=== PATIENT | male | born 1985 | race Caucasian/White ===

== ENCOUNTER 2017-08-13 09:44 | Emergency (ER) | payer BC, OTHER ==
[2017-08-13] MEDS ORDERED: methylPREDNISolone Sodium Succinate 125 MG/2 ML SDV IM ONE (10:10)
[2017-08-13] MEDS ORDERED: hydrOXYzine Pamoate 25 MG Cap PO ONE (10:10)
--- NOTE | 2017-08-13 10:16 | EDM.PDOC ---
ED HPI GENERAL MEDICAL PROBLEM - General Chief Complaint: Allergic Reaction Stated Complaint: SOB,ITCHY Time Seen by Provider: 08/13/17 10:00 - History of Present Illness INITIAL COMMENTS - FREE TEXT/NARRATIVE: HISTORY AND PHYSICAL: History of present illness: The patient is a 32-year-old male presents with complaints of a rash on the nape of his neck upper extremities and lower legs as well as face that started 2 -3 days ago. The patient said he saw a provider at a walk-in clinic earlier this week for an area on his left wrist that was scaly and dry and was placed on triamcinolone cream. The patient has been taking Benadryl once a day as well to help with itching. The patient works in the oil [email or web address] and says he is around a lot of chemicals and he is not sure if that caused the initial rash on his wrist. The new rash that he is here for today started 2-3 days ago and is very itchy but he has no facial swelling oral swelling or shortness of breath. Review of systems: As per history of present illness and below otherwise all systems reviewed and negative. Past medical history: As per history of present illness and as reviewed below otherwise noncontributory. Surgical history: As per history of present illness and as reviewed below otherwise noncontributory. Social history: No reported history of drug or alcohol abuse. Family history: As per history of present illness and as reviewed below otherwise noncontributory. Physical exam: Gen.: Well-developed well-nourished male who is nontoxic and speaking clearly in the ED. Vital signs have been noted by me. HEENT: Atraumatic, normocephalic, there is no gross facial swelling appreciated negative for conjunctival pallor or scleral icterus, mucous membranes moist, throat clear, neck supple, nontender, trachea midline. Lungs: Clear to auscultation, breath sounds equal bilaterally, chest nontender. No wheezing or stridor Heart: S1S2, regular rate and rhythm no overt murmurs Abdomen: Soft, nondistended, nontender. NABS Pelvis: Deferred Genitourinary: Deferred. Rectal: Deferred. Extremities: Atraumatic, negative for cords or calf pain. Neurovascular unremarkable. Neuro: Awake, alert, oriented. Cranial nerves II through XII unremarkable. Cerebellum unremarkable. Motor and sensory unremarkable throughout. Exam nonfocal. Skin: At his left wrist dorsally there is a large patch of erythema dry and scaly rash which is well demarcated and has some scant skin breaks. There is no drainage from this area no tenderness and no swelling. The other rash for which she is here being seen for today is located around the anterior and posterior aspect of his neck scattered areas on his upper extremities, his for head and cheeks, and his lower legs. It is maculopapular and raised and there are no vesicles. There is no rash seen on his abdomen or his back. Diagnostics: [] Therapeutics: Vistaril Solu-Medrol Impression: Nonspecific dermatitis Definitive disposition and diagnosis as appropriate pending reevaluation and review of above. - Related Data Allergies Allergy/AdvReac Type Severity Reaction Status Date / Time No Known Allergies Allergy Verified 08/13/17 10:03 Home Meds: Home Meds . [No Known Home Meds] 08/13/17 [History] Past Medical History - Past Health History Medical/Surgical History: Denies Medical/Surgical History Social & Family History - Recreational Drug Use Recreational Drug Use: No ED ROS ALLERGIC REACTION - Review of Systems Review Of Systems: ROS reveals no pertinent complaints other than HPI. ED EXAM GENERAL NO PERIP PULSE - Physical Exam Exam: See Below (See dictation) Course - Vital Signs Last Recorded V/S: Last Vital Signs Temp 36.7 C 08/13/17 10:04 Pulse 79 08/13/17 10:04 Resp 18 08/13/17 10:04 BP 164/86 H 08/13/17 10:04 Pulse Ox 98 08/13/17 10:04 - Orders/Labs/Meds Orders: Active Orders 24 hr Category Date Time Status hydrOXYzine Pamoate [Vistaril] Med 08/13/17 10:10 Once 25 mg PO ONETIME ONE methylPREDNISolone Sod Succ [Solu-MEDROL] Med 08/13/17 10:10 Once 125 mg IM ONETIME ONE Medication Orders Hydroxyzine Pamoate (Vistaril) 25 mg PO ONETIME ONE Stop: 08/13/17 10:11 Methylprednisolone Sodium Succinate (Solu-Medrol) 125 mg IM ONETIME ONE Stop: 08/13/17 10:11 Meds: Medications Generic Name Dose Route Start Last Admin Trade Name Freq PRN Reason Stop Dose Admin Hydroxyzine Pamoate 25 mg 08/13/17 10:10 Vistaril PO 08/13/17 10:11 ONETIME ONE Methylprednisolone Sodium Succinate 125 mg 08/13/17 10:10 Solu-Medrol IM 08/13/17 10:11 ONETIME ONE Departure - Departure Time of Disposition: 10:16 Disposition: Home, Self-Care 01 Condition: Good Clinical Impression: Contact dermatitis Qualifiers: Contact dermatitis type: unspecified Contact dermatitis trigger: unspecified trigger Qualified Code(s): L25.9 - Unspecified contact dermatitis, unspecified cause - Discharge Information Referrals: PCP,None [Primary Care Provider] - Additional Instructions: The following information is given to patients seen in the emergency department who are being discharged to home. This information is to outline your options for follow-up care. We provide all patients seen in our emergency department with a follow-up referral. The need for follow-up, as well as the timing and circumstances, are variable depending upon the specifics of your emergency department visit. If you don't have a primary care physician on staff, we will provide you with a referral. We always advise you to contact your personal physician following an emergency department visit to inform them of the circumstance of the visit and for follow-up with them and/or the need for any referrals to a consulting specialist. The emergency department will also refer you to a specialist when appropriate. This referral assures that you have the opportunity for followup care with a specialist. All of these measure are taken in an effort to provide you with optimal care, which includes your followup. Under all circumstances we always encourage you to contact your private physician who remains a resource for coordinating your care. When calling for followup care, please make the office aware that this follow-up is from your recent emergency room visit. If for any reason you are refused follow-up, please contact the [facility] emergency department at and ask to speak to the emergency department charge nurse. [facility] Primary care- Internal Medicine and Family [address] [address] Please use hypoallergenic soaps and lotions to your body where there is no rash such as Cetaphil [id number]. Please use [id number] Benadryl or the prescribed Vistaril for itching as we discussed the next 2 days and then as needed afterwards. Please use [id number] hydrocortisone cream in small amounts on the areas of the new rash and continue your treatment on the prior rash. Please take prednisone as directed and start the prescription tomorrow. Please call and follow-up in our clinic in the next few days for further care and reevaluation and/or connect with a band tier for further care. Return to ER as needed and as discussed - My Orders Last 24 Hours: My Active Orders 08/13/17 10:10 hydrOXYzine Pamoate [Vistaril] 25 mg PO ONETIME ONE methylPREDNISolone Sod Succ [Solu-MEDROL] 125 mg IM ONETIME ONE - Assessment/Plan Last 24 Hours: My Active Orders 08/13/17 10:10 hydrOXYzine Pamoate [Vistaril] 25 mg PO ONETIME ONE methylPREDNISolone Sod Succ [Solu-MEDROL] 125 mg IM ONETIME ONE
== END 2017-08-13 10:47 | disposition home or self-care (01) ==
LOC: MW.ED 09:44
DX: L25.9 Unspecified contact dermatitis, unspecified cause (principal)
CPT/HCPCS: 96372; 99282; A9270; J2930; 99283

== ENCOUNTER 2018-03-11 09:45 | Observation (INO) | payer BC ==
[2018-03-11] MEDS ORDERED: methylPREDNISolone Sodium Succinate 125 MG/2 ML SDV IVPUSH ONE (09:50)
[2018-03-11] MEDS ORDERED: diphenhydrAMINE 50 MG/ML SDV IVPUSH ONE (09:50)
--- NOTE | 2018-03-11 09:51 | EDM.PDOC ---
ED HPI GENERAL MEDICAL PROBLEM - General Stated Complaint: SPOKE TO NURSE Time Seen by Provider: 03/11/18 09:49 - History of Present Illness INITIAL COMMENTS - FREE TEXT/NARRATIVE: HISTORY AND PHYSICAL: History of present illness: Patient is a 33-year-old white male presents with a concern of a rash he had a similar episode in the past for which he was told didn't likely represented an contact dermatitis he comes in now with an area that started on his buttock and has now spread to his hands forearms and face there is a pleuritic component he denies fever chills nausea or vomiting Review of systems: As per history of present illness and below otherwise all systems reviewed and negative. Past medical history: As per history of present illness and as reviewed below otherwise noncontributory. Surgical history: As per history of present illness and as reviewed below otherwise noncontributory. Social history: No reported history of drug or alcohol abuse. Family history: As per history of present illness and as reviewed below otherwise noncontributory. Physical exam: HEENT: Atraumatic, normocephalic, pupils reactive, negative for conjunctival pallor or scleral icterus, mucous membranes moist, throat clear, neck supple, nontender, trachea midline. Lungs: Clear to auscultation, breath sounds equal bilaterally, chest nontender. Heart: S1S2, regular, negative for clicks, rubs, or JVD. Abdomen: Soft, nondistended, nontender. Negative for masses or hepatosplenomegaly. Negative for costovertebral tenderness. Pelvis: Stable nontender. Genitourinary: Deferred. Rectal: Deferred. Extremities: Atraumatic, negative for cords or calf pain. Neurovascular unremarkable. Neuro: Awake, alert, oriented. Cranial nerves II through XII unremarkable. Cerebellum unremarkable. Motor and sensory unremarkable throughout. Exam nonfocal. Skin: Patient has a maculopapular rash involving his face neck hands forearms and has an extensive area with coalescence of his bilateral buttock with erythema warmth and tenderness Diagnostics: CBC CMP blood culture 2 lactic acid Therapeutics: Saline 1 L bolus vancomycin 1 g IV Solu-Medrol 125 mg IV Benadryl 50 mg IV Impression: #1 allergic dermatitis #2 rule out cellulitis Definitive disposition and diagnosis as appropriate pending reevaluation and review of above. - Related Data Allergies Allergy/AdvReac Type Severity Reaction Status Date / Time No Known Allergies Allergy Verified 03/11/18 09:51 Home Meds: Home Meds . [No Known Home Meds] 08/13/17 [History] Past Medical History - Past Health History Medical/Surgical History: Denies Medical/Surgical History Social & Family History - Caffeine Use Caffeine Use: Reports: Coffee, Energy Drinks ED ROS GENERAL - Review of Systems Review Of Systems: ROS reveals no pertinent complaints other than HPI. ED EXAM, GENERAL - Physical Exam Exam: See Below (See dictation) Course - Vital Signs Last Recorded V/S: Last Vital Signs Temp 36.2 C 03/11/18 09:51 Pulse 87 03/11/18 09:51 Resp 16 03/11/18 09:51 BP 141/81 H 03/11/18 09:51 Pulse Ox 99 03/11/18 09:51 - Orders/Labs/Meds Orders: Active Orders 24 hr Category Date Time Status COMPREHENSIVE METABOLIC PN,CMP [CHEM] Stat Lab 03/11/18 09:57 Received CULTURE BLOOD [BC] Stat Lab 03/11/18 09:57 Received CULTURE BLOOD [BC] Stat Lab 03/11/18 10:13 Results Vancomycin [Vancocin] 1 gm Med 03/11/18 09:50 Active Sodium Chloride 0.9% [Normal Saline] 250 ml IV ONETIME Blood Culture x2 Reflex Set [OM.PC] Stat Oth 03/11/18 09:50 Ordered Medication Orders Vancomycin HCl 1 gm/ Sodium (Chloride) 250 mls @ 166 mls/hr IV ONETIME ONE Stop: 03/11/18 11:20 Last Admin: 03/11/18 10:06 Dose: 166 mls/hr Labs: Laboratory Tests 03/11/18 03/11/18 Range/Units 09:57 09:57 WBC 8.40 (4.0-11.0) K/uL RBC 4.73 (4.50-5.90) M/uL Hgb 15.2 (13.0-17.0) g/dL Hct 42.7 (38.0-50.0) % MCV 90.3 (80.0-98.0) fL MCH 32.1 H (27.0-32.0) pg MCHC 35.6 (31.0-37.0) g/dL RDW Std Deviation 42.7 (28.0-62.0) fl RDW Coeff of Damaris 13 (11.0-15.0) % Plt Count 240 (150-400) K/uL MPV 9.60 (7.40-12.00) fL Neut % (Auto) 55.4 (48.0-80.0) % Lymph % (Auto) 30.4 (16.0-40.0) % [place] % (Auto) 8.2 (0.0-15.0) % Eos % (Auto) 5.5 (0.0-7.0) % Baso % (Auto) 0.5 (0.0-1.5) % Neut # (Auto) 4.7 (1.4-5.7) K/uL Lymph # (Auto) 2.6 H (0.6-2.4) K/uL [place] # (Auto) 0.7 (0.0-0.8) K/uL Eos # (Auto) 0.5 (0.0-0.7) K/uL Baso # (Auto) 0.0 (0.0-0.1) K/uL Nucleated RBC % 0.0 /100WBC Nucleated RBCs # 0 K/uL Lactate 0.9 (0.20-2.00) mmol/L Meds: Medications Generic Name Dose Route Start Last Admin Trade Name Freq PRN Reason Stop Dose Admin Vancomycin HCl 1 gm/ Sodium 250 mls @ 166 mls/hr 03/11/18 09:50 03/11/18 10: 06 Chloride IV 03/11/18 11:20 166 mls/hr ONETIME ONE Administration Discontinued Medications Generic Name Dose Route Start Last Admin Trade Name Freq PRN Reason Stop Dose Admin Diphenhydramine HCl 50 mg 03/11/18 09:50 03/11/18 10:06 Benadryl IVPUSH 03/11/18 09:51 50 mg ONETIME ONE Administration Diphenhydramine HCl Confirm 03/11/18 10:03 03/11/18 10:20 Benadryl Administered 03/11/18 10:04 Not Given Dose 50 mg .ROUTE .STK-MED ONE Methylprednisolone Sodium Succinate 125 mg 03/11/18 09:50 03/11/18 10:06 Solu-Medrol IVPUSH 03/11/18 09:51 125 mg ONETIME ONE Administration Methylprednisolone Sodium Succinate Confirm 03/11/18 10:04 03/11/18 10:20 Solu-Medrol Administered 03/11/18 10:05 Not Given Dose 125 mg .ROUTE .STK-MED ONE Departure - Departure Time of Disposition: 10:30 Disposition: Refer to Observation Condition: Good Clinical Impression: Cellulitis Contact dermatitis Qualifiers: Contact dermatitis type: unspecified Contact dermatitis trigger: unspecified trigger Qualified Code(s): L25.9 - Unspecified contact dermatitis, unspecified cause - Discharge Information - My Orders Last 24 Hours: My Active Orders 03/11/18 09:50 Vancomycin [Vancocin] 1 gm Sodium Chloride 0.9% [Normal Saline] 250 ml IV ONETIME Blood Culture x2 Reflex Set [OM.PC] Stat 03/11/18 09:57 COMPREHENSIVE METABOLIC PN,CMP [CHEM] Stat CULTURE BLOOD [BC] Stat 03/11/18 10:13 CULTURE BLOOD [BC] Stat - Assessment/Plan Last 24 Hours: My Active Orders 03/11/18 09:50 Vancomycin [Vancocin] 1 gm Sodium Chloride 0.9% [Normal Saline] 250 ml IV ONETIME Blood Culture x2 Reflex Set [OM.PC] Stat 03/11/18 09:57 COMPREHENSIVE METABOLIC PN,CMP [CHEM] Stat CULTURE BLOOD [BC] Stat 03/11/18 10:13 CULTURE BLOOD [BC] Stat
[2018-03-11] MEDS ORDERED: diphenhydrAMINE 50 MG/ML SDV ONE (10:03)
[2018-03-11] MEDS ORDERED: methylPREDNISolone Sodium Succinate 125 MG/2 ML SDV ONE (10:04)
[2018-03-11 10:32] LABS: CHLORIDE,CL 104 mmol/L (98-107); SODIUM,NA 137 mmol/L (136-148)
--- NOTE | 2018-03-11 16:41 | PCM.HP ---
H&P History of Present Illness - General Date of Service: 03/11/18 Admit Problem/Dx: Admission Diagnosis/Problem Admission Diagnosis/Problem Dermatitis - History of Present Illness Initial Comments - Free Text/Narative: 33 yo male who presents with rash on his buttocks and feet. - Related Data Allergies/Adverse Reactions: Allergies Allergy/AdvReac Type Severity Reaction Status Date / Time No Known Allergies Allergy Verified 03/11/18 09:51 Home Medications: Home Meds Sulfamethoxazole/Trimethoprim [Bactrim Ds Tablet] 1 each PO BID #8 tablet [Rx] predniSONE 20 mg PO WITHBREAKFAST #4 tab 03/12/18 [Rx] Past Medical History - Past Health History Medical/Surgical History: Denies Medical/Surgical History Dermatologic History: Reports: Other (See Below) Other Dermatologic History: hx of dermatitis - Infectious Disease History Infectious Disease History: Reports: Chicken Pox Social & Family History - Family History Family Medical History: Noncontributory - Tobacco Use Smoking Status *Q: Current Every Day Smoker Years of Tobacco use: 14 Packs/Tins Daily: 1.5 - Caffeine Use Caffeine Use: Reports: Coffee, Energy Drinks - Alcohol Use Days Per Week of Alcohol Use: 3 Number of Drinks Per Day: 5 Total Drinks Per Week: 15 Date of Last Drink: 03/10/18 Time of Last Drink: 21:00 - Recreational Drug Use Recreational Drug Use: Yes Drug Use in Last 12 Months: No H&P Review of Systems - Review of Systems: Review Of Systems: ROS reveals no pertinent complaints other than HPI. Exam - Exam Exam: See Below - Vital Signs Vital Signs: Last Vital Signs Temp 36.6 C 03/11/18 12:20 Pulse 80 03/11/18 12:20 Resp 14 03/11/18 12:20 BP 121/72 03/11/18 12:20 Pulse Ox 97 03/11/18 12:20 Weight: 102.313 kg - Exam General: Alert, Oriented Lungs: Clear to Auscultation, Normal Respiratory Effort Cardiovascular: Regular Rate, Regular Rhythm GI/Abdominal Exam: Soft, Non-Tender Extremities: Non-Tender, No Pedal Edema Skin: Rash (erythamtous rash of shape of underwear on buttock with satalite lesions on back, scaly rash of dorsum of feet bilaterally) - Patient Data Lab Results Last 24 hrs: Laboratory Results - last 24 hr 03/11/18 03/11/18 03/11/18 Range/Units 09:57 09:57 09:57 WBC 8.40 (4.0-11.0) K/uL RBC 4.73 (4.50-5.90) M/uL Hgb 15.2 (13.0-17.0) g/dL Hct 42.7 (38.0-50.0) % MCV 90.3 (80.0-98.0) fL MCH 32.1 H (27.0-32.0) pg MCHC 35.6 (31.0-37.0) g/dL RDW Std Deviation 42.7 (28.0-62.0) fl RDW Coeff of Damaris 13 (11.0-15.0) % Plt Count 240 (150-400) K/uL MPV 9.60 (7.40-12.00) fL Neut % (Auto) 55.4 (48.0-80.0) % Lymph % (Auto) 30.4 (16.0-40.0) % [place] % (Auto) 8.2 (0.0-15.0) % Eos % (Auto) 5.5 (0.0-7.0) % Baso % (Auto) 0.5 (0.0-1.5) % Neut # (Auto) 4.7 (1.4-5.7) K/uL Lymph # (Auto) 2.6 H (0.6-2.4) K/uL [place] # (Auto) 0.7 (0.0-0.8) K/uL Eos # (Auto) 0.5 (0.0-0.7) K/uL Baso # (Auto) 0.0 (0.0-0.1) K/uL Nucleated RBC % 0.0 /100WBC Nucleated RBCs # 0 K/uL Lactate 0.9 (0.20-2.00) mmol/L Sodium 137 (136-148) mmol/L Potassium 4.0 (3.5-5.1) mmol/L Chloride 104 (98-107) mmol/L Carbon Dioxide 27.5 (21.0-32.0) mmol/L BUN 10 (7.0-18.0) mg/dL Creatinine 0.8 (0.8-1.3) mg/dL Est Cr Clr Drug Dosing 128.25 mL/min Estimated GFR (MDRD) > 60.0 ml/min Glucose 114 H (74-106) mg/dL Calcium 8.9 (8.5-10.1) mg/dL Total Bilirubin 0.7 (0.2-1.0) mg/dL AST 29 (15-37) IU/L ALT 31 (14-63) IU/L Alkaline Phosphatase 69 (46-116) U/L Total Protein 7.3 (6.4-8.2) g/dL Albumin 3.9 (3.4-5.0) g/dL Globulin 3.4 (2.0-3.5) g/dL Albumin/Globulin Ratio 1.1 L (1.3-2.8) Result Diagrams: 03/12/18 06:32 03/12/18 06:32 Irvin Results Last 24 hrs: Microbiology 03/11/18 10:13 Anaerobic Blood Culture - Final Blood - Venous - Lab Draw Problem List Initiated/Reviewed/Updated: Yes Orders Last 24hrs: Active Orders 24 hr Category Date Time Status Patient Status [ADT] Stat ADT 03/11/18 10:31 Active Oxygen Therapy [RC] PRN Care 03/11/18 16:38 Active Up ad [place] [RC] ASDIRECTED Care 03/11/18 16:38 Active VTE/DVT Education [RC] PER UNIT ROUTINE Care 03/11/18 16:38 Active Vital Signs [RC] Q4H Care 03/11/18 16:38 Active Regular Diet [DIET] Diet 03/11/18 Lunch Active BASIC METABOLIC PANEL,BMP [CHEM] AM Lab 03/12/18 05:11 Ordered CBC WITH AUTO DIFF [HEME] AM Lab 03/12/18 05:11 Ordered CULTURE BLOOD [BC] Stat Lab 03/11/18 09:57 Received CULTURE BLOOD [BC] Stat Lab 03/11/18 10:13 Results Vancomycin Pharmacy to Dose [Pharmacy to Dose - Med 03/11/18 16:45 Ordered Vancomycin] 1 dose .XX ASDIRECTED diphenhydrAMINE [Benadryl] Med 03/11/18 16:37 Active 25 mg PO Q6H PRN Blood Culture x2 Reflex Set [OM.PC] Stat Oth 03/11/18 09:50 Ordered Sequential Compression Device [OM.PC] Per Unit Routine Oth 03/11/18 16:38 Ordered Resuscitation Status Routine Resus Stat 03/11/18 16:38 Ordered Medication Orders Diphenhydramine HCl (Benadryl) 25 mg PO Q6H PRN PRN Reason: pruritis Vancomycin HCl (Pharmacy To Dose - Vancomycin) 1 dose .XX ASDIRECTED GREGORY Assessment/Plan Comment:: 33 yo male admitted for rash of buttock and feet. Patient is treated with vancomycin, and solumedrol.
[2018-03-11] MEDS ORDERED: Vancomycin 1 GM AdvVial ONE (17:12)
[2018-03-11] MEDS ORDERED: Sodium Chloride 0.9% 250 ML ONE (17:13)
[2018-03-11] MEDS: Vancomycin 1 GM, Vancomycin 250 MG in Sodium Chloride 0.9% 250 ML IV SCH (17:22)
[2018-03-11] MEDS: diphenhydrAMINE 25 MG Cap PO PRN (17:37)
[2018-03-11] MEDS: Nicotine 14 MG/24 Hr Patch TRDERM SCH (20:34)
[2018-03-12] MEDS: Vancomycin 1 GM, Vancomycin 250 MG in Sodium Chloride 0.9% 250 ML IV SCH (00:29)
[2018-03-12] MEDS: diphenhydrAMINE 25 MG Cap PO PRN ×2 (00:30→08:53)
[2018-03-12 06:57] LABS: CHLORIDE,CL 108 mmol/L (98-107); SODIUM,NA 140 mmol/L (136-148)
[2018-03-12] MEDS: Nicotine 14 MG/24 Hr Patch TRDERM SCH (08:53)
--- NOTE | 2018-03-12 13:26 | PCM.DCSUM1 ---
Discharge Summary - Discharge Data Discharge Date: 03/12/18 Discharge Disposition: Home, Self-Care 01 Condition: Good - Patient Summary/Data Hospital Course: 33 yo male who presented with rash of buttock, dorsum of feet and hands. The rash was felt likely to be contact dermatitis from his work clothing, boots and gloves. He was treated with vancomycin and solumedrol with improvement of rash. Skin scrapings were sent to pathology and were negative. He was discharged home on bactrim DS and prednisone for four more days. - Discharge Plan Prescriptions/Med Rec: predniSONE 20 mg PO WITHBREAKFAST #4 tab Sulfamethoxazole/Trimethoprim [Bactrim Ds Tablet] 1 each PO BID #8 tablet Home Medications: Home Meds Sulfamethoxazole/Trimethoprim [Bactrim Ds Tablet] 1 each PO BID #8 tablet [Rx] predniSONE 20 mg PO WITHBREAKFAST #4 tab 03/12/18 [Rx] Forms: ED Department Discharge Referrals: PCP,None [Primary Care Provider] - - Patient Data Vitals - Most Recent: Last Vital Signs Temp 36.3 C 03/12/18 12:00 Pulse 59 L 03/12/18 12:00 Resp 22 H 03/12/18 12:00 BP 124/61 03/12/18 12:00 Pulse Ox 96 03/12/18 12:00 Weight - Most Recent: 102.313 kg I&O - Last 24 hours: Intake & Output 03/11/18 03/12/18 03/12/18 22:59 06:59 14:59 Intake Total 1000 850 Output Total 700 900 Balance 300 -50 Lab Results - Last 24 hrs: Laboratory Results - last 24 hr 03/12/18 03/12/18 Range/Units 06:32 06:32 WBC 14.35 H (4.0-11.0) K/uL RBC 4.32 L (4.50-5.90) M/uL Hgb 13.8 (13.0-17.0) g/dL Hct 39.0 (38.0-50.0) % MCV 90.3 (80.0-98.0) fL MCH 31.9 (27.0-32.0) pg MCHC 35.4 (31.0-37.0) g/dL RDW Std Deviation 42.1 (28.0-62.0) fl RDW Coeff of Damaris 13 (11.0-15.0) % Plt Count 208 (150-400) K/uL MPV 9.60 (7.40-12.00) fL Neut % (Auto) 74.2 (48.0-80.0) % Lymph % (Auto) 16.6 (16.0-40.0) % [place] % (Auto) 7.2 (0.0-15.0) % Eos % (Auto) 1.7 (0.0-7.0) % Baso % (Auto) 0.3 (0.0-1.5) % Neut # (Auto) 10.6 H (1.4-5.7) K/uL Lymph # (Auto) 2.4 (0.6-2.4) K/uL [place] # (Auto) 1.0 H (0.0-0.8) K/uL Eos # (Auto) 0.3 (0.0-0.7) K/uL Baso # (Auto) 0.1 (0.0-0.1) K/uL Nucleated RBC % 0.0 /100WBC Nucleated RBCs # 0 K/uL Sodium 140 (136-148) mmol/L Potassium 3.7 (3.5-5.1) mmol/L Chloride 108 H (98-107) mmol/L Carbon Dioxide 25.6 (21.0-32.0) mmol/L BUN 14 (7.0-18.0) mg/dL Creatinine 0.7 L (0.8-1.3) mg/dL Est Cr Clr Drug Dosing 146.57 mL/min Estimated GFR (MDRD) > 60.0 ml/min Glucose 120 H (74-106) mg/dL Calcium 8.5 (8.5-10.1) mg/dL ARYAN Results - Last 24 hrs: Microbiology 03/11/18 10:13 Aerobic Blood Culture - Preliminary Blood - Venous - Lab Draw NO GROWTH AFTER 1 DAY Anaerobic Blood Culture - Final 03/11/18 09:57 Aerobic Blood Culture - Preliminary Blood - Venous NO GROWTH AFTER 1 DAY Anaerobic Blood Culture - Preliminary NO GROWTH AFTER 1 DAY Med Orders - Current: Current Medications Diphenhydramine HCl (Benadryl) 25 mg PO Q6H PRN PRN Reason: pruritis Last Admin: 03/12/18 08:53 Dose: 25 mg Vancomycin HCl 1.25 gm/ Sodium (Chloride) 250 mls @ 250 mls/hr IV Q8H [facility] Last Admin: 03/12/18 08:52 Dose: 250 mls/hr Nicotine (Habitrol) 14 mg TRDERM DAILY [facility] Last Admin: 03/12/18 08:53 Dose: 14 mg Vancomycin HCl (Pharmacy To Dose - Vancomycin) 1 dose .XX ASDIRECTED [facility] Discontinued Medications Diphenhydramine HCl (Benadryl) 50 mg IVPUSH ONETIME ONE Stop: 03/11/18 09:51 Last Admin: 03/11/18 10:06 Dose: 50 mg Diphenhydramine HCl (Benadryl) Confirm Administered Dose 50 mg .ROUTE .STK-MED ONE Stop: 03/11/18 10:04 Last Admin: 03/11/18 10:20 Dose: Not Given Vancomycin HCl 1 gm/ Sodium (Chloride) 250 mls @ 166 mls/hr IV ONETIME ONE Stop: 03/11/18 11:20 Last Admin: 03/11/18 10:06 Dose: 166 mls/hr Vancomycin HCl 1 gm/Vancomycin HCl 250 mg/ Sodium Chloride 250 mls @ 250 mls/ hr IV Q8H [facility] Last Admin: 03/12/18 00:29 Dose: 250 mls/hr Sodium Chloride (Normal Saline) Confirm Administered Dose 250 mls @ as directed .ROUTE .STK-MED ONE Stop: 03/11/18 17:14 Last Admin: 03/11/18 17:41 Dose: Not Given Methylprednisolone Sodium Succinate (Solu-Medrol) 125 mg IVPUSH ONETIME ONE Stop: 03/11/18 09:51 Last Admin: 03/11/18 10:06 Dose: 125 mg Methylprednisolone Sodium Succinate (Solu-Medrol) Confirm Administered Dose 125 mg .ROUTE .STK-MED ONE Stop: 03/11/18 10:05 Last Admin: 03/11/18 10:20 Dose: Not Given Vancomycin HCl (Vancocin) Confirm Administered Dose 1 gm .ROUTE .STK-MED ONE Stop: 03/11/18 17:13 Last Admin: 03/11/18 17:41 Dose: Not Given
== END 2018-03-12 14:25 | disposition home or self-care (01) ==
LOC: MW.ED 09:45 → MW.MS 10:31
PROVIDERS: ADMIT Internal Medicine; ATTEND Internal Medicine
DX: L25.9 Unspecified contact dermatitis, unspecified cause (principal); R21 Rash and other nonspecific skin eruption; F17.210 Nicotine dependence, cigarettes, uncomplicated; Z79.2 Long term (current) use of antibiotics
CPT/HCPCS: 36415; 80048; 80053; 83605; 85025; 87040; 96365; 96366; 96375; 99284; A9270; J1200; J2930; J3370; J7050; 96376; G0378

== ENCOUNTER 2018-03-21 09:43 | Emergency (ER) | payer BC ==
--- NOTE | 2018-03-21 10:19 | EDM.PDOC ---
ED HPI GENERAL MEDICAL PROBLEM - General Chief Complaint: Skin Complaint Stated Complaint: SKIN RASH Time Seen by Provider: 03/21/18 10:06 Source of Information: Reports: Patient History Limitations: Reports: No Limitations - History of Present Illness INITIAL COMMENTS - FREE TEXT/NARRATIVE: History of present illness: []Patient has a recurring rash for the past 3 years the first time it affected his left lower leg and ankle only, a year ago it affected his left hand this time he is broken out all over mostly affecting his buttocks. He has never had a positive diagnosis was recently admitted and put on vancomycin and Solu- Medrol in the hospital and then was placed on Bactrim and prednisone for 4 days. The treatment diminished his itching however did not decrease the rash. He returns with continuing rash, increasing itching but denies any fevers or chills. He has been using oatmeal baths for mild relief of itching. While in the hospital he did have a scraping of the skin at several sites that was negative for scabies. Review of systems: As per history of present illness and below otherwise all systems reviewed and negative. Past medical history: As per history of present illness and as reviewed below otherwise noncontributory. Surgical history: As per history of present illness and as reviewed below otherwise noncontributory. Social history: No reported history of drug or alcohol abuse. Family history: As per history of present illness and as reviewed below otherwise noncontributory. Physical exam: General: Well developed, well nourished in NAD HEENT: Atraumatic, normocephalic, pupils reactive, negative for conjunctival pallor or scleral icterus, mucous membranes moist, throat clear, neck supple, nontender, trachea midline. Lungs: Clear to auscultation, breath sounds equal bilaterally, chest nontender. Heart: S1S2, regular, negative for clicks, rubs, or JVD. Abdomen: Soft, nondistended, nontender. Negative for masses or hepatosplenomegaly. Negative for costovertebral tenderness. Pelvis: Stable nontender. Genitourinary: Deferred. No perineal or testicular involvement Rectal: Deferred. Extremities: Atraumatic, negative for cords or calf pain. Neurovascular unremarkable. Neuro: Awake, alert, oriented. Cranial nerves II through XII unremarkable. Cerebellum unremarkable. Motor and sensory unremarkable throughout. Exam nonfocal. Skin:warm and dry Diagnostics: Vital signs are stable he is afebrile Therapeutics: None ED Course: Unremarkable Impression: Diffuse rash which is more severe on buttocks Prescriptions: Medrol Dosepak, Plan: use Benadryl spray or oral Benadryl for itching, use Medrol Dosepak as directed all up with a hand finisher. Definitive disposition and diagnosis as appropriate pending reevaluation and review of above. Generalized Pain Score (Numeric/FACES): 4 - Related Data Allergies Allergy/AdvReac Type Severity Reaction Status Date / Time No Known Allergies Allergy Verified 03/11/18 09:51 Home Meds: Home Meds Sulfamethoxazole/Trimethoprim [Bactrim Ds Tablet] 1 each PO BID #8 tablet [Rx] predniSONE 20 mg PO WITHBREAKFAST #4 tab 03/12/18 [Rx] methylPREDNISolone [Medrol] 4 mg PO ASDIRECTED #1 dosepk 03/21/18 [Rx] Past Medical History - Past Health History Medical/Surgical History: Denies Medical/Surgical History Dermatologic History: Reports: Cellulitis, Other (See Below) Other Dermatologic History: hx of dermatitis - Infectious Disease History Infectious Disease History: Reports: Chicken Pox Social & Family History - Family History Family Medical History: Noncontributory - Tobacco Use Smoking Status *Q: Current Every Day Smoker Years of Tobacco use: 14 Packs/Tins Daily: 1.5 - Caffeine Use Caffeine Use: Reports: Coffee, Energy Drinks - Recreational Drug Use Recreational Drug Use: No ED ROS GENERAL - Review of Systems Review Of Systems: ROS reveals no pertinent complaints other than HPI. ED EXAM, SKIN/RASH Exam: See Below (See history of present illness) Course - Vital Signs Last Recorded V/S: Last Vital Signs Temp 97.5 F 03/21/18 10:02 Pulse 80 03/21/18 10:02 Resp 18 03/21/18 10:02 BP 149/85 H 03/21/18 10:02 Pulse Ox 98 03/21/18 10:02 Departure - Departure Time of Disposition: 10:21 Disposition: Home, Self-Care 01 Condition: Good Clinical Impression: Contact dermatitis Qualifiers: Contact dermatitis type: unspecified Contact dermatitis trigger: unspecified trigger Qualified Code(s): L25.9 - Unspecified contact dermatitis, unspecified cause - Discharge Information *PRESCRIPTION DRUG MONITORING PROGRAM REVIEWED*: No *COPY OF PRESCRIPTION DRUG MONITORING REPORT IN PATIENT LINDA: No Referrals: PCP,None [Primary Care Provider] - Forms: ED Department Discharge Additional Instructions: The following information is given to patients seen in the emergency department who are being discharged to home. This information is to outline your options for follow-up care. We provide all patients seen in our emergency department with a follow-up referral. The need for follow-up, as well as the timing and circumstances, are variable depending upon the specifics of your emergency department visit. If you don't have a primary care physician on staff, we will provide you with a referral. We always advise you to contact your personal physician following an emergency department visit to inform them of the circumstance of the visit and for follow-up with them and/or the need for any referrals to a consulting specialist. The emergency department will also refer you to a specialist when appropriate. This referral assures that you have the opportunity for follow-up care with a specialist. All of these measure are taken in an effort to provide you with optimal care, which includes your follow-up. Under all circumstances we always encourage you to contact your private physician who remains a resource for coordinating your care. When calling for follow-up care, please make the office aware that this follow-up is from your recent emergency room visit. If for any reason you are refused follow-up, please contact the [facility] Emergency Department at and asked to speak to the emergency department charge nurse. Medrol Dosepak as directed, use Benadryl oral or spray Follow-up with a hand finisher next available appointment Damaris Kerr [address] [place] [id number]
== END 2018-03-21 10:46 | disposition home or self-care (01) ==
LOC: MW.ED 09:43
DX: L25.9 Unspecified contact dermatitis, unspecified cause (principal); F17.210 Nicotine dependence, cigarettes, uncomplicated; Z79.899 Other long term (current) drug therapy
CPT/HCPCS: 99282

== ENCOUNTER 2019-03-11 19:26 | Emergency (ER) | payer BC ==
--- NOTE | 2019-03-11 20:26 | EDM.PDOC ---
ED HPI GENERAL MEDICAL PROBLEM - General Chief Complaint: Laceration Stated Complaint: LACERATED FINGER Time Seen by Provider: 03/11/19 20:26 Source of Information: Reports: Patient History Limitations: Reports: No Limitations - History of Present Illness INITIAL COMMENTS - FREE TEXT/NARRATIVE: HISTORY AND PHYSICAL: History of present illness: Patient is a 34-year-old male presents to the ED with complaint of laceration to the left thumb. He states he cut it this evening with a steak knife. He denies other injury and has no other complaints at this time. He is not UTD on tetanus Review of systems: As per history of present illness and below otherwise all systems reviewed and negative. Past medical history: As per history of present illness and as reviewed below otherwise noncontributory. Surgical history: As per history of present illness and as reviewed below otherwise noncontributory. Social history: No reported history of drug or alcohol abuse. Family history: As per history of present illness and as reviewed below otherwise noncontributory. Physical exam: General: Patient sitting comfortably in no acute distress and nontoxic appearing HEENT: Atraumatic, normocephalic, pupils reactive, negative for conjunctival pallor or scleral icterus, mucous membranes moist, throat clear, neck supple, nontender, trachea midline. No meningeal signs. Lungs: Clear to auscultation, breath sounds equal bilaterally, chest nontender. Heart: S1S2, regular, negative for clicks, rubs, or overt murmur. Abdomen: Soft, nondistended, nontender. Negative for masses or hepatosplenomegaly. Negative for costovertebral tenderness. No rigidity, rebound , guarding. Pelvis: Stable nontender. Genitourinary: Deferred. Rectal: Deferred. Extremities: There is a flap like superficial laceration to the distal pad of the left thumb. negative for cords or calf pain. Neurovascular unremarkable. Neuro: Awake, alert, oriented. Cranial nerves II through XII unremarkable. Cerebellum unremarkable. Motor and sensory unremarkable throughout. Exam nonfocal. Notes: Diagnostics: [] Therapeutics: [] Prescriptions: Impression: laceration, finger injury Plan: Keep the area clean and dry as instructed Follow up with primary care provider return to ED as needed as discussed Definitive disposition and diagnosis as appropriate pending reevaluation and review of above. Left Finger-Thumb Pain Score (Numeric/FACES): 7 - Related Data Allergies Allergy/AdvReac Type Severity Reaction Status Date / Time No Known Allergies Allergy Verified 03/11/18 09:51 Home Meds: Home Meds Sulfamethoxazole/Trimethoprim [Bactrim Ds Tablet] 1 each PO BID #8 tablet [Rx] predniSONE 20 mg PO WITHBREAKFAST #4 tab 03/12/18 [Rx] methylPREDNISolone [Medrol] 4 mg PO ASDIRECTED #1 dosepk 03/21/18 [Rx] Past Medical History - Past Health History Medical/Surgical History: Denies Medical/Surgical History Dermatologic History: Reports: Cellulitis, Other (See Below) Other Dermatologic History: hx of dermatitis - Infectious Disease History Infectious Disease History: Reports: Chicken Pox Social & Family History - Family History Family Medical History: Noncontributory - Caffeine Use Caffeine Use: Reports: Coffee, Energy Drinks ED ROS GENERAL - Review of Systems Review Of Systems: ROS reveals no pertinent complaints other than HPI. ED EXAM, SKIN/RASH Exam: See Below (see dictation) ED SKIN PROCEDURES - Laceration/Wound Repair Left Digit - 1st (Thumb) Appearance: Superficial, Subcutaneous, Irregular, Clean Distal NVT: Neuro & Vascular Intact, No Tendon Injury Skin Prep: Saline Saline Irrigation (cc's): 250 Exploration/Debridement/Repair: Wound Explored, In a Bloodless Field, Explored to Base, No Foreign Material Found, Multiple Flaps Aligned Closed with: Dermabond, Steri-Strips Lac/Wound length In cm: 1.5 Course - Vital Signs Last Recorded V/S: Last Vital Signs Temp 98.5 F 03/11/19 19:32 Pulse 85 03/11/19 19:32 Resp 14 03/11/19 19:32 BP 128/77 03/11/19 19:32 Pulse Ox 95 03/11/19 19:32 - Orders/Labs/Meds Meds: Medications Discontinued Medications Generic Name Dose Route Start Last Admin Trade Name Dahlia PRN Reason Stop Dose Admin Lidocaine HCl 5 ml 03/11/19 19:40 Xylocaine-Mpf 1% INJECT 03/11/19 19:41 ONETIME ONE Octyl Cyanoacrylate Confirm 03/11/19 20:47 Dermabond Advance Administered 03/11/19 20:48 Dose 1 applic .ROUTE .STK-MED ONE Departure - Departure Time of Disposition: 20:52 Disposition: Home, Self-Care 01 Condition: Good Clinical Impression: Laceration, Finger injury - Discharge Information Referrals: PCP,None [Primary Care Provider] - Forms: ED Department Discharge Additional Instructions: The following information is given to patients seen in the emergency department who are being discharged to home. This information is to outline your options for follow-up care. We provide all patients seen in our emergency department with a follow-up referral. The need for follow-up, as well as the timing and circumstances, are variable depending upon the specifics of your emergency department visit. If you don't have a primary care physician on staff, we will provide you with a referral. We always advise you to contact your personal physician following an emergency department visit to inform them of the circumstance of the visit and for follow-up with them and/or the need for any referrals to a consulting specialist. The emergency department will also refer you to a specialist when appropriate. This referral assures that you have the opportunity for follow-up care with a specialist. All of these measure are taken in an effort to provide you with optimal care, which includes your follow-up. Under all circumstances we always encourage you to contact your private physician who remains a resource for coordinating your care. When calling for follow-up care, please make the office aware that this follow-up is from your recent emergency room visit. If for any reason you are refused follow-up, please contact the [facility] at and asked to speak to the emergency department charge nurse. [facility] [address] [place] [id number] [facility] [address] [place] [id number] Keep the area clean and dry as instructed Follow up with primary care provider return to ED as needed as discussed
[2019-03-11] MEDS ORDERED: Octyl 2-Cyanoacrylate 1 Tube ONE (20:47)
[2019-03-11] MEDS ORDERED: Diphtheria,Pertussis(Acell),Tetanus Vaccine 0.5 ML Syringe IM ONE (20:51)
[2019-03-11] MEDS ORDERED: Octyl 2-Cyanoacrylate 1 Tube TOP ONE (21:40)
== END 2019-03-11 21:15 | disposition home or self-care (01) ==
LOC: MW.ED 19:26
DX: S61.012A Laceration without foreign body of left thumb without damage to nail, initial encounter (principal); Z23 Encounter for immunization; W26.0XXA Contact with knife, initial encounter
CPT/HCPCS: 90471; 90715; 99282; A9270

== ENCOUNTER 2020-07-19 09:54 | Emergency (ER) | payer BC ==
[2020-07-19] MEDS ORDERED: Meclizine 25 MG Tab PO ONE (10:18)
[2020-07-19] MEDS ORDERED: Sodium Chloride 0.9% 1,000 ML IV ONE (10:18)
--- NOTE | 2020-07-19 10:45 | EDM.PDOC ---
ED HPI GENERAL MEDICAL PROBLEM - General Chief Complaint: Neuro Symptoms/Deficits Stated Complaint: LIGHTHEADED Time Seen by Provider: 07/19/20 10:08 Source of Information: Reports: Patient History Limitations: Reports: No Limitations - History of Present Illness INITIAL COMMENTS - FREE TEXT/NARRATIVE: HISTORY AND PHYSICAL: History of present illness: Patient is a 35-year-old male who presents to the emergency room with complaints of dizziness and feeling lightheaded since yesterday evening. He states he noticed when he was moving around he felt like he was dizzy, subsided when he would be at rest or not making sudden head movements. He states last evening and today he has the sensation of feeling light headed. He is tearful during the interview and states "I just do not feel well". He denies any injury, trauma or falls. Patient denies any fever, chills, headache, change in vision, syncope or near syncope. Denies any chest pain, back pain, shortness of breath o r cough. Denies any abdominal pain, nausea, vomiting, diarrhea, constipation or dysuria. Has not noted any blood in urine or stool. Patient has been eating and drinking appropriately. Review of systems: As per history of present illness and below otherwise all systems reviewed and negative. Past medical history: As per history of present illness and as reviewed below otherwise noncontributory. Surgical history: As per history of present illness and as reviewed below otherwise noncontributory. Social history: See social history for further information Family history: As per history of present illness and as reviewed below otherwise noncontributory. Physical exam: General: Well developed and well nourished 35 year old male. Alert and orientated x 3. Nontoxic in appearance and in no acute distress. Vital signs are stable and have been reviewed by me. Nursing notes were reviewed. HEENT: Atraumatic, normocephalic, pupils equal and reactive bilaterally, negative for conjunctival pallor or scleral icterus, no nystagmus, mucous membranes moist, TMs normal bilaterally, throat clear, neck supple, nontender, trachea midline. No drooling or trismus noted. No meningeal signs. No hot potato voice noted. Lungs: Clear to auscultation, breath sounds equal bilaterally, chest nontender. Normal work of breathing, no accessory muscles used. Heart: S1S2, regular rate and rhythm without overt murmur Abdomen: Soft, nondistended, nontender. Negative for masses or hepatosplenomegaly. Negative for costovertebral tenderness. Pelvis: Stable nontender. Skin: Intact, warm, dry. No lesions or rashes noted. Hematologic: No petechiae or purpra. Mucosa appropriate color and normal nail bed color and refill. Extremities: Atraumatic, moves all extremities per self without difficulty or deficits, negative for cords or calf pain. Neurovascular unremarkable. Neuro: Awake, alert, oriented. Cranial nerves II through XII unremarkable. Cerebellum unremarkable. Motor and sensory unremarkable throughout. Exam nonfocal. Psychiatric: Mood and affect are appropriate. Normal thought process. Answering questions appropriately. Notes: NIH: 0, GCS: 15 - no neurological symptoms associated with is ER visit today. Lab work is unremarkable. Patient states he does feel improved after the IV fluids and meclizine. Vital signs remained stable. Orthostatic vital signs are WNL. I have talked with the patient about today's findings, in addition to providing specific details for plan of care. Reassessment at the time of disposition demonstrates that the patient is in no acute distress. The patient is stable for discharge, counseling was provided and we discussed in great detail signs and symptoms that would prompt them to return to the Emergency Department. Medication, follow up and supportive care measures were reviewed and discussed. Voices understanding and is agreeable to plan of care. Denies any further questions or concerns at this time. Diagnostics: CBC, CMP, UA, Orthostatic vital signs Therapeutics: IV fluids, Meclizine Prescription: None Impression: Dizziness Plan: 1. Today your lab work was within normal limits. Drink plenty of fluids and small frequent meals throughout the day. 2. You can take over the counter Meclizine as needed for dizziness (received here). Take as directed. 3. We encourage you to follow up with your primary care provider and/or recommended specialist in the next few days for re-evaluation and further care/management. If your symptoms should worsen, new symptoms develop or any of the signs and symptoms we discussed should arise please return to the emergency room or call 911 (if needed). Definitive disposition and diagnosis as appropriate pending reevaluation and review of above. - Related Data Allergies Allergy/AdvReac Type Severity Reaction Status Date / Time No Known Allergies Allergy Verified 07/19/20 10:33 Home Meds: Home Meds . [No Known Home Meds] 07/19/20 [History] Past Medical History - Past Health History Medical/Surgical History: Denies Medical/Surgical History Dermatologic History: Reports: Cellulitis, Other (See Below) Other Dermatologic History: hx of dermatitis - Infectious Disease History Infectious Disease History: Reports: Chicken Pox Social & Family History - Family History Family Medical History: No Pertinent Family History - Tobacco Use Tobacco Use Status *Q: Never Tobacco User - Caffeine Use Caffeine Use: Reports: Coffee - Recreational Drug Use Recreational Drug Use: No ED ROS GENERAL - Review of Systems Review Of Systems: Comprehensive ROS is negative, except as noted in HPI. ED EXAM, NEURO - Physical Exam Exam: See Below (See dictation) Course - Vital Signs Last Recorded V/S: Last Vital Signs Temp 97.6 F 07/19/20 10:34 Pulse 71 07/19/20 11:59 Resp 17 07/19/20 10:50 BP 134/90 07/19/20 11:59 Pulse Ox 98 07/19/20 11:59 - Orders/Labs/Meds Orders: Active Orders 24 hr Category Date Time Status CULTURE URINE [RM] Stat Lab 07/19/20 11:16 Received Labs: Laboratory Tests 07/19/20 07/19/20 07/19/20 Range/Units 10:16 10:20 10:20 WBC 6.40 (4.0-11.0) K/uL RBC 4.62 (4.50-5.90) M/uL Hgb 14.6 (13.0-17.0) g/dL Hct 42.8 (38.0-50.0) % MCV 92.6 (80.0-98.0) fL MCH 31.6 (27.0-32.0) pg MCHC 34.1 (31.0-37.0) g/dL RDW Std Deviation 46.0 (28.0-62.0) fl RDW Coeff of [place]aris 14 (11.0-15.0) % Plt Count 220 (150-400) K/uL MPV 9.80 (7.40-12.00) fL Neut % (Auto) 52.4 (48.0-80.0) % Lymph % (Auto) 35.3 (16.0-40.0) % [place] % (Auto) 8.0 (0.0-15.0) % Eos % (Auto) 3.8 (0.0-7.0) % Baso % (Auto) 0.5 (0.0-1.5) % Neut # (Auto) 3.4 (1.4-5.7) K/uL Lymph # (Auto) 2.3 (0.6-2.4) K/uL [place] # (Auto) 0.5 (0.0-0.8) K/uL Eos # (Auto) 0.2 (0.0-0.7) K/uL Baso # (Auto) 0.0 (0.0-0.1) K/uL Nucleated RBC % 0.0 /100WBC Nucleated RBCs # 0 K/uL Sodium 140 (136-148) mmol/L Potassium 4.5 (3.5-5.1) mmol/L Chloride 105 (98-107) mmol/L Carbon Dioxide 26.3 (21.0-32.0) mmol/L BUN 13 (7.0-18.0) mg/dL Creatinine 0.7 L (0.8-1.3) mg/dL Est Cr Clr Drug Dosing 143.86 mL/min Estimated GFR (MDRD) > 60.0 ml/min Glucose 106 (74-106) mg/dL POC Glucose 91 (60-110) mg/dL Calcium 9.1 (8.5-10.1) mg/dL Total Bilirubin 0.7 (0.2-1.0) mg/dL AST 22 (15-37) IU/L ALT 25 (14-63) IU/L Alkaline Phosphatase 57 (46-116) U/L Total Protein 7.7 (6.4-8.2) g/dL Albumin 4.0 (3.4-5.0) g/dL Globulin 3.7 (2.6-4.0) g/dL Albumin/Globulin Ratio 1.1 (0.9-1.6) Urine Color Urine Appearance Urine pH (5.0-8.0) Ur Specific [place] (1.001-1.035) Urine Protein (NEGATIVE) mg/dL Urine Glucose (UA) (NEGATIVE) mg/dL Urine Ketones (NEGATIVE) mg/dL Urine Occult Blood (NEGATIVE) Urine Nitrite (NEGATIVE) Urine Bilirubin (NEGATIVE) Urine Urobilinogen (<2.0) EU/dL Ur Leukocyte Esterase (NEGATIVE) Urine RBC (0-2/HPF) Urine WBC (0-5/HPF) Ur Epithelial Cells (NONE-FEW) Urine Bacteria (NEGATIVE) Influenza Type A RNA (NEGATIVE) Influenza Type B RNA (NEGATIVE) SARS-CoV-2 RNA (GUEVARA) (NEGATIVE) 07/19/20 07/19/20 Range/Units 10:30 11:16 WBC (4.0-11.0) K/uL RBC (4.50-5.90) M/uL Hgb (13.0-17.0) g/dL Hct (38.0-50.0) % MCV (80.0-98.0) fL MCH (27.0-32.0) pg MCHC (31.0-37.0) g/dL RDW Std Deviation (28.0-62.0) fl RDW Coeff of [place]aris (11.0-15.0) % Plt Count (150-400) K/uL MPV (7.40-12.00) fL Neut % (Auto) (48.0-80.0) % Lymph % (Auto) (16.0-40.0) % [place] % (Auto) (0.0-15.0) % Eos % (Auto) (0.0-7.0) % Baso % (Auto) (0.0-1.5) % Neut # (Auto) (1.4-5.7) K/uL Lymph # (Auto) (0.6-2.4) K/uL [place] # (Auto) (0.0-0.8) K/uL Eos # (Auto) (0.0-0.7) K/uL Baso # (Auto) (0.0-0.1) K/uL Nucleated RBC % /100WBC Nucleated RBCs # K/uL Sodium (136-148) mmol/L Potassium (3.5-5.1) mmol/L Chloride (98-107) mmol/L Carbon Dioxide (21.0-32.0) mmol/L BUN (7.0-18.0) mg/dL Creatinine (0.8-1.3) mg/dL Est Cr Clr Drug Dosing mL/min Estimated GFR (MDRD) ml/min Glucose (74-106) mg/dL POC Glucose (60-110) mg/dL Calcium (8.5-10.1) mg/dL Total Bilirubin (0.2-1.0) mg/dL AST (15-37) IU/L ALT (14-63) IU/L Alkaline Phosphatase (46-116) U/L Total Protein (6.4-8.2) g/dL Albumin (3.4-5.0) g/dL Globulin (2.6-4.0) g/dL Albumin/Globulin Ratio (0.9-1.6) Urine Color YELLOW Urine Appearance CLEAR Urine pH 7.0 (5.0-8.0) Ur Specific [place] 1.015 (1.001-1.035) Urine Protein NEGATIVE (NEGATIVE) mg/dL Urine Glucose (UA) NEGATIVE (NEGATIVE) mg/dL Urine Ketones NEGATIVE (NEGATIVE) mg/dL Urine Occult Blood NEGATIVE (NEGATIVE) Urine Nitrite NEGATIVE (NEGATIVE) Urine Bilirubin NEGATIVE (NEGATIVE) Urine Urobilinogen 0.2 (<2.0) EU/dL Ur Leukocyte Esterase TRACE H (NEGATIVE) Urine RBC 0-1 (0-2/HPF) Urine WBC 0-2 (0-5/HPF) Ur Epithelial Cells RARE (NONE-FEW) Urine Bacteria RARE (NEGATIVE) Influenza Type A RNA NEGATIVE (NEGATIVE) Influenza Type B RNA NEGATIVE (NEGATIVE) SARS-CoV-2 RNA (GUEVARA) NEGATIVE (NEGATIVE) Meds: Medications Discontinued Medications Generic Name Dose Route Start Last Admin Trade Name Freq PRN Reason Stop Dose Admin Sodium Chloride 1,000 mls @ 999 mls/hr 07/19/20 10:18 07/19/20 10:23 Normal Saline IV 07/19/20 11:18 999 mls/hr STAT ONE Administration Meclizine HCl 25 mg 07/19/20 10:18 07/19/20 10:23 Antivert PO 07/19/20 10:19 25 mg ONETIME ONE Administration Departure - Departure Time of Disposition: 11:46 Disposition: Home, Self-Care 01 Clinical Impression: Dizziness - Discharge Information Instructions: Dizziness, [id number] Referrals: PCP,None [Primary Care Provider] - Forms: ED Department Discharge Additional Instructions: The following information is given to patients seen in the emergency department who are being discharged to home. This information is to outline your options for follow-up care. We provide all patients seen in our emergency department with a follow-up referral. The need for follow-up, as well as the timing and circumstances, are variable depending upon the specifics of your emergency department visit. If you don't have a primary care physician on staff, we will provide you with a referral. We always advise you to contact your personal physician following an emergency department visit to inform them of the circumstance of the visit and for follow-up with them and/or the need for any referrals to a consulting specialist. The emergency department will also refer you to a specialist when appropriate. This referral assures that you have the opportunity for follow-up care with a specialist. All of these measure are taken in an effort to provide you with optimal care, which includes your follow-up. Under all circumstances we always encourage you to contact your private physician who remains a resource for coordinating your care. When calling for follow-up care, please make the office aware that this follow-up is from your recent emergency room visit. If for any reason you are refused follow-up, please contact the [facility] Emergency Department at and asked to speak to the emergency department charge nurse. [facility] [address] [place] [address] [place] [address] Thank you for choosing the [facility] emergency department in [place] for your medical needs today. It was a pleasure caring for you. Today you were seen in the emergency department for dizziness and feeling unwell. 1. Today your lab work was within normal limits. Drink plenty of fluids and small frequent meals throughout the day. 2. You can take over the counter Meclizine as needed for dizziness (received here). Take as directed. 3. We encourage you to follow up with your primary care provider and/or recommended specialist in the next few days for re-evaluation and further care/management. If your symptoms should worsen, new symptoms develop or any of the signs and symptoms we discussed should arise please return to the emergency room or call [phone] (if needed). Sepsis Event Note (ED) - Evaluation Sepsis Screening Result: No Definite Risk - Focused Exam Vital Signs: Vital Signs Temp Pulse Resp BP Pulse Ox 07/19/20 11:59 71 134/90 98 07/19/20 10:50 74 17 125/72 97 07/19/20 10:34 97.6 F 74 17 138/88 98 - My Orders Last 24 Hours: My Active Orders 07/19/20 11:16 CULTURE URINE [RM] Stat - Assessment/Plan Last 24 Hours: My Active Orders 07/19/20 11:16 CULTURE URINE [RM] Stat
[2020-07-19 10:57] LABS: BLOOD UREA NITROGEN,BUN 13 mg/dL (7.0-18.0); CARBON DIOXIDE,CO2 26.3 mmol/L (21.0-32.0); CHLORIDE,CL 105 mmol/L (98-107); GLUCOSE RANDOM 106 mg/dL (74-106); POTASSIUM,K 4.5 mmol/L (3.5-5.1); SODIUM,NA 140 mmol/L (136-148)
[2020-07-19 11:14] LABS: CORONAVIRUS COVID-19 NAA NEGATIVE (NEGATIVE); INFLUENZA A NAA NEGATIVE (NEGATIVE); INFLUENZA B NAA NEGATIVE (NEGATIVE)
== END 2020-07-19 11:59 | disposition home or self-care (01) ==
LOC: MW.ED 09:54
DX: R42 Dizziness and giddiness (principal); Z20.822 Contact with and (suspected) exposure to COVID-19
CPT/HCPCS: 0240U; 36415; 80053; 81001; 82962; 85025; 87086; 99284; A9270; J7030; 99283

== ENCOUNTER 2023-06-23 21:47 | Emergency (ER) | payer BC | END 2023-06-23 22:42 | disposition left against medical advice (07) | LOC: MW.ED 21:47 | DX: Z53.21 Procedure and treatment not carried out due to patient leaving prior to being seen by health care provider (principal) ==